=== PATIENT | female | born 1950 | race Hispanic/Latino ===

== ENCOUNTER 2018-07-11 05:34 | Day surgery (SDC) | payer BC, MEDICARE ==
[~2018-07-11] VITALS: Ht 157.5 cm; Wt 69.9 kg
[2018-07-11] MEDS ORDERED: SODIUM CHLORIDE 0.9% 1000ML 1,000 ML IV ONE (05:51)
[2018-07-11 05:59] VITALS: BP 122/61
[2018-07-11] MEDS ORDERED: FERROUS PO (06:40)
[2018-07-11] MEDS ORDERED: DOCU-116 PO (06:40)
[2018-07-11] MEDS ORDERED: NITRO (06:40)
[2018-07-11] MEDS ORDERED: ASPI-1197 PO (06:40)
[2018-07-11] MEDS ORDERED: SIMV80TA91 PO (06:40)
[2018-07-11] MEDS ORDERED: CA C1TAB95 PO (06:40)
[2018-07-11] MEDS ORDERED: HYDR25TA PO (06:40)
[2018-07-11] MEDS ORDERED: HYDR200T4 PO (06:40)
[2018-07-11] MEDS ORDERED: ALLEGRA (06:40)
[2018-07-11] MEDS ORDERED: FOLI1TAB15 PO (06:40)
[2018-07-11] MEDS ORDERED: METO50TA9 PO (06:40)
[2018-07-11] MEDS ORDERED: ALPR-410 PO (06:40)
[2018-07-11] MEDS ORDERED: FLUT16H NASAL (06:40)
[2018-07-11] MEDS ORDERED: RANI150C4 PO (06:40)
[2018-07-11] MEDS ORDERED: PROPOFOL 10 MG/ML 20ML VIAL IV ONE (07:05)
[2018-07-11 07:22] VITALS: BP 96/32
[2018-07-11 07:29] VITALS: BP 102/36
[2018-07-11 07:34] VITALS: BP 100/43
[2018-07-11 07:37] VITALS: BP 126/54
== END 2018-07-11 07:49 | disposition home or self-care (01) ==
LOC: ENDO 05:34 → DAH 05:34 → ENDO 07:49
PROVIDERS: ATTEND Internal Medicine
DX: K29.30 Chronic superficial gastritis without bleeding (principal); K22.8 Other specified diseases of esophagus; K31.89 Other diseases of stomach and duodenum; I10 Essential (primary) hypertension; E78.5 Hyperlipidemia, unspecified; F41.9 Anxiety disorder, unspecified; F32.9 Major depressive disorder, single episode, unspecified; I25.10 Atherosclerotic heart disease of native coronary artery without angina pectoris; M19.90 Unspecified osteoarthritis, unspecified site; Z88.1 Allergy status to other antibiotic agents; Z88.8 Allergy status to other drugs, medicaments and biological substances; Z95.5 Presence of coronary angioplasty implant and graft; Z98.890 Other specified postprocedural states; Z72.89 Other problems related to lifestyle; Z79.82 Long term (current) use of aspirin; Z79.899 Other long term (current) drug therapy; Z98.49 Cataract extraction status, unspecified eye; Z96.659 Presence of unspecified artificial knee joint; Z83.3 Family history of diabetes mellitus; Z80.0 Family history of malignant neoplasm of digestive organs; Z82.49 Family history of ischemic heart disease and other diseases of the circulatory system
CPT/HCPCS: 43239; 88305; 93005; A4606; J2704; J7030

== ENCOUNTER 2020-10-12 06:05 | Day surgery (SDC) | payer OTHER ==
[2020-10-11 14:25] VITALS: BP 118/61
[2020-10-11 14:55] LABS: EOSINOPHILS % (AUTO) 2.4 % (0.0-8.0); HEMATOCRIT 50.5 % (36-48); LYMPHOCYTES % (AUTO) 27.3 % (21.0-51.0); MEAN CORPUSCULAR HEMOGLOBIN 28.8 pg (27.0-33.0); MEAN CORPUSCULAR HGB CONC 30.9 g/dL (32.0-36.0); MEAN CORPUSCULAR VOLUME 93.2 fL (79-99); MONOCYTES % (AUTO) 7.7 % (3.0-13.0); NEUTROPHILS % (AUTO) 60.8 % (40.0-77.0); PLATELET COUNT (AUTO) 214 K/uL (130-400); RED BLOOD CELL COUNT(AUTO) 5.42 MIL/uL (4.00-5.50); RED CELL DISTRIBUTION WIDTH 17.3 % (11.0-15.5); WHITE BLOOD COUNT (AUTO) 6.3 K/uL (4.8-10.8)
[2020-10-11 14:58] LABS: APPEARANCE,URINE CLOUDY (CLEAR); BILIRUBIN,URINE MODERATE (NEGATIVE); COLOR,URINE YELLOW (YELLOW); GLUCOSE, URINE (UA) NEGATIVE (NEGATIVE); KETONES,URINE 5 mg/dL (NEGATIVE); LEUKOCYTE ESTERASE ,URINE MODERATE (NEGATIVE); NITRATE,URINE NEGATIVE (NEGATIVE); OCCULT BLOOD,URINE LARGE (NEGATIVE); PH,URINE 5.5 (5.0-8.0); PROTEIN,URINE 100 mg/dL (NEGATIVE)
[2020-10-11 15:07] LABS: INR 1.45 (0.85-1.15); PROTHROMBIN TIME 15.3 SEC (9.6-11.6)
[2020-10-11 15:08] LABS: PARTIAL THROMBOPLASTIN TIME 32.6 SEC (26.3-35.5)
[2020-10-11 15:09] LABS: CREATININE 0.9 mg/dL (0.5-1.5); POTASSIUM 4.3 mmol/L (3.5-5.1)
[2020-10-11 15:42] LABS: WBC,URINE TNTC /HPF (0-1)
[2020-10-11 15:43] LABS: BACTERIA,URINE Rare /HPF (None Seen); SQUAMOUS EPITHELIAL CELL,UR None Seen /HPF (0-2)
[2020-10-12] VITALS (13 sets, daily range): BP systolic 95–128; BP diastolic 46–67
[~2020-10-12 06:05] MED LIST: 0.9% NACL 500ML IV.SOLN 500 ML IV SCH; ALPR0.5T PO; APIX5TAB PO; ASPI-1197 PO; CALC-1125 PO; CEFTRIAXONE 1G VIAL IVP SCH; FAMO20TA8 PO; FERROUS PO; FOLI1TAB15 PO; FURO40TA7 PO; FURO80TA3 PO; HYDR200T4 PO; LANS30CA55 PO; METO50TA9 PO; POTA-79 PO; SERT-439 PO; SIMV80TA91 PO
[2020-10-12] MEDS ORDERED: 0.9%NACL 1000ML 1,000 ML IV ONE (06:20)
[2020-10-12] MEDS ORDERED: BIVALIRUDIN 250 MG/VIAL IV ONE (09:07)
[2020-10-12] MEDS ORDERED: MIDAZOLAM HCL 1 MG/ML 2ML VIAL ONE (09:08)
[2020-10-12] MEDS ORDERED: IOHEXOL-350 50ML VIAL IV ONE ×2 (09:08→10:15)
[2020-10-12] MEDS ORDERED: NITROGLYCERIN 2 MG VIAL IV ONE (09:08)
[2020-10-12] MEDS ORDERED: IOHEXOL 350 MG/ML 100ML INFUS..BTL IV ONE ×2 (09:08→10:14)
[2020-10-12] MEDS ORDERED: LIDOCAINE HCL 400MG/20ML VIAL ONE (09:08)
[2020-10-12] MEDS ORDERED: HEPARIN 10,000 UNIT/10ML (1,000 UNIT/ML) VIAL ONE (09:08)
[2020-10-12] MEDS ORDERED: FENTANYL CITRATE PF 50 MCG/1 ML 2ML VIAL ONE (09:08)
[2020-10-12] MEDS ORDERED: DEXTROSE 50%-WATER 50 ML DISP.SYRIN IV PRN (10:30)
[2020-10-12] MEDS ORDERED: NITROGLYCERIN 0.4 MG SL TAB SL PRN (10:30)
[2020-10-12] MEDS ORDERED: 0.9%NACL 1000ML 1,000 ML IV SCH (10:30)
[2020-10-12] MEDS ORDERED: METOPROLOL TARTRATE 1 MG/ML 5ML VIAL IV PRN (10:30)
[2020-10-12] MEDS ORDERED: HYDRALAZINE 20MG/ML VIAL IV PRN (10:30)
[2020-10-12] MEDS ORDERED: GLUCAGON 1MG KIT 1 MG ML IM PRN (10:30)
== END 2020-10-12 16:30 | disposition home or self-care (01) ==
LOC: DAH 06:05
PROVIDERS: ATTEND Internal Medicine Cardiovascular Disease
DX: I25.119 Atherosclerotic heart disease of native coronary artery with unspecified angina pectoris (principal); I25.82 Chronic total occlusion of coronary artery; I27.20 Pulmonary hypertension, unspecified; I25.5 Ischemic cardiomyopathy; I34.0 Nonrheumatic mitral (valve) insufficiency; I11.0 Hypertensive heart disease with heart failure; I50.43 Acute on chronic combined systolic (congestive) and diastolic (congestive) heart failure; E78.5 Hyperlipidemia, unspecified; I25.10 Atherosclerotic heart disease of native coronary artery without angina pectoris; I48.0 Paroxysmal atrial fibrillation; I87.2 Venous insufficiency (chronic) (peripheral); E66.9 Obesity, unspecified; K21.9 Gastro-esophageal reflux disease without esophagitis; F41.9 Anxiety disorder, unspecified; Z98.891 History of uterine scar from previous surgery; Z98.890 Other specified postprocedural states; Z98.49 Cataract extraction status, unspecified eye; Z90.49 Acquired absence of other specified parts of digestive tract; Z82.49 Family history of ischemic heart disease and other diseases of the circulatory system; Z72.89 Other problems related to lifestyle; Z79.01 Long term (current) use of anticoagulants; Z68.30 Body mass index [BMI] 30.0-30.9, adult; Z79.82 Long term (current) use of aspirin; Z79.899 Other long term (current) drug therapy
CPT/HCPCS: 36415; 71045; 80048; 81001; 85025; 85610; 85730; 87077; 87088; 87186; 93005; 93461; A4215; A4216; A4221; A4222; A4223 ×3; A4606; A4663; A6253; A6260; A6446; C1769 ×2; C1894 ×3; J0696; J1644; J2250; J3010; J3490 ×2; J7030; Q9965 ×2; Q9967 ×2; 96360; 96361; 99156; 99157; J0583